=== PATIENT | male | born 1955 | race Caucasian/White ===

== ENCOUNTER → 2019-07-10 | Outpatient (CLI) | payer OTHER ==
[2013-03-01 21:00] VITALS: BP 132/92
[~2019-07-10] MED LIST: DULO60CA6 PO; METO50TA4 PO; PANT40GR PO; TRAZ-125 PO
--- NOTE | 2019-07-10 10:23 | RAD ---
INDICATION: Left thumb pain COMPARISON: None. IMPRESSION: Left first digit of hand: 3 views obtained. No evidence of acute fracture or dislocation. Degenerative changes are identified. 1 mm high density structures are seen projecting over the soft tissues distal to the tip of the first distal phalanx. Could be secondary to debris on the patient's skin or under the nail. Electronically signed by: Isidro Kevin MD (07/10/2019 10:20 AM) [id number]
== END | disposition home or self-care (01) ==
LOC: RAD 09:59
PROVIDERS: ATTEND Physician Assistant
DX: M19.042 Primary osteoarthritis, left hand (principal)
CPT/HCPCS: 73140

== ENCOUNTER → 2020-11-24 | Outpatient (CLI) | payer MEDICARE, OTHER ==
[2013-03-01 21:00] VITALS: BP 132/92
[~2020-11-24] MED LIST changes: -DULO60CA6 PO; +DULO60CA7 PO
--- NOTE | 2020-11-24 10:53 | RAD ---
EXAM: Right hand, 3 views. HISTORY: Pain and swelling. COMPARISON: None. FINDINGS: 3 views of the right hand are obtained. There is no fracture, dislocation or subluxation. T here is triscaphe and first carpometacarpal joint space narrowing and spurring. There is S-shaped pro minence overlying the metacarpal heads in the lateral projection. No foreign body is seen. IMPRESSION: 1. 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 2. Soft tissue prominence overlying the dorsal aspect of the metacarpal heads. Electronically signed by: Iris Blackman MD (11/24/2020 10:51 AM) [id number]
== END ==
LOC: RAD 10:40
PROVIDERS: ATTEND Physician Assistant
DX: M18.11 Unilateral primary osteoarthritis of first carpometacarpal joint, right hand (principal); M77.8 Other enthesopathies, not elsewhere classified
CPT/HCPCS: 73130